=== PATIENT | female | born 1940 | race Caucasian/White ===

== ENCOUNTER 2019-10-22 01:23 | Emergency (ER) | payer MEDICARE, OTHER ==
[~2019-10-22 01:23] MED LIST: ASPI81TA26 PO; ATIV1TAB7 PO; COUM2.5T17 PO; COZA100T2 PO; DILT120T PO; EFFE75CA2 PO; FERR225T PO; HYDR12.55 PO; INSULANT SC; JANU100T PO; LEVO25TA5 PO; LOMO2.5T PO; MECL1CHW PO; METF500T13 PO; POTA540T PO; RISP1TAB3 PO; TYLE167L PO; ULTR50TA8 PO; VYTO10TA22 PO; [UNRECOGNIZED DRUG - CODE] PO
[2019-10-22 02:31] LABS: HEMATOCRIT 36.6 % (36.0-47.0); HEMOGLOBIN 11.6 g/dl (12.0-15.5); MEAN CORPUSCULAR HEMOGLOBIN 30.1 pg (27.0-33.0); MEAN CORPUSCULAR HGB CONC 31.7 g/dl (32.0-36.5); MEAN CORPUSCULAR VOLUME 94.8 fl (80.0-96.0); PLATELET COUNT, AUTOMATED 158 10^3/uL (150-450); RED BLOOD COUNT 3.86 10^6/uL (4.00-5.40); WHITE BLOOD COUNT 9.4 10^3/uL (4.0-10.0)
[2019-10-22 03:20] LABS: ACETAMINOPHEN LEVEL < 2.0 UG/ML (10.0-30.0); ALT/SGPT 17 U/L (12-78); BILIRUBIN,DIRECT 0.1 MG/DL (0.0-0.2); BILIRUBIN,TOTAL 0.2 MG/DL (0.2-1.0); CALCIUM LEVEL 8.4 MG/DL (8.8-10.2); CARBON DIOXIDE LEVEL 37 MEQ/L (21-32); CHLORIDE LEVEL 100 MEQ/L (98-107); ETHYL ALCOHOL (ETHANOL) < 0.003 % (0.000-0.010); GLOMERULAR FILTRATION RATE 46.1 (>39); GLUCOSE, FASTING 133 MG/DL (70-100); SALICYLATE LEVEL < 1.7 MG/DL (5.0-30.0); SODIUM LEVEL 143 MEQ/L (136-145); TOTAL PROTEIN 6.4 GM/DL (6.4-8.2)
[2019-10-22 03:29] LABS: BLOOD UREA NITROGEN 24 MG/DL (7-18)
[2019-10-22 04:29] LABS: AMPHETAMINES LEVEL URINE NEGATIVE (NEGATIVE); BARBITURATES URINE NEGATIVE (NEGATIVE); BENZODIAZEPINES URINE NEGATIVE (NEGATIVE); CANNABINOIDS URINE NEGATIVE (NEGATIVE); COCAINE METABOLITE URINE NEGATIVE (NEGATIVE); METHADONE URINE NEGATIVE (NEGATIVE); OPIATES URINE NEGATIVE (NEGATIVE); PHENCYCLIDINE URINE NEGATIVE (NEGATIVE)
[2019-10-22] MEDS ORDERED: HUMA100I5 SC (04:50)
[2019-10-22] MEDS ORDERED: LANTINJ4 SC ×2 (04:50)
[2019-10-22] MEDS ORDERED: NITR50CA34 PO (04:50)
[2019-10-22] MEDS ORDERED: NAME28CA PO (04:50)
[2019-10-22] MEDS ORDERED: ASPI81TA85 PO (04:50)
[2019-10-22] MEDS ORDERED: VALS1TAB66 PO (04:50)
[2019-10-22] MEDS ORDERED: METO25TA4 PO (04:50)
[2019-10-22] MEDS ORDERED: SPIR-10 PO (04:50)
[2019-10-22] MEDS ORDERED: RISP0.5T3 PO (04:50)
[2019-10-22] MEDS ORDERED: SIMV20TA22 PO (04:50)
[2019-10-22] MEDS ORDERED: LEVO88TA3 PO (04:50)
[2019-10-22] MEDS ORDERED: ACET1TAB55 PO (04:50)
[2019-10-22] MEDS ORDERED: ACET1TAB37 PO (04:50)
[2019-10-22] MEDS ORDERED: OXYB-54 PO (04:50)
[2019-10-22] MEDS ORDERED: FURO40TA2 PO (04:50)
[2019-10-22] MEDS ORDERED: MELA3TAB49 PO (04:50)
[2019-10-22] MEDS ORDERED: LEVOTHYROXINE 88MCG TABLET (0.088 MG) PO SCH (06:00)
[2019-10-22] MEDS ORDERED: MAGN400O53 PO (08:35)
[2019-10-22] MEDS ORDERED: MELA3TAB62 PO (08:35)
[2019-10-22] MEDS ORDERED: DULC10SU2 PR (08:35)
[2019-10-22] MEDS ORDERED: ENEMENE6 PR (08:35)
[2019-10-22] MEDS ORDERED: DRIS50003 PO (08:35)
[2019-10-22] MEDS ORDERED: CVS40GEL PO (08:35)
[2019-10-22] MEDS ORDERED: GLUC1KIT IM (08:35)
[2019-10-22] MEDS ORDERED: SPIRONOLACTONE 25 MG TAB PO SCH (09:00)
[2019-10-22] MEDS ORDERED: oxyBUTYnin *DITROPAN XL* 5 MG TABCR PO SCH (09:00)
[2019-10-22] MEDS ORDERED: VALSARTAN 80 MG TAB (DIOVAN) PO ONE (09:15)
[2019-10-22] MEDS ORDERED: FUROSEMIDE 40 MG TAB PO ONE (09:15)
[2019-10-22] MEDS ORDERED: METOPROLOL TART 25 MG TABLET PO ONE (09:15)
[2019-10-22] MEDS ORDERED: ASPIRIN 81 MG CHEW TABLET PO ONE (09:15)
[2019-10-22] MEDS ORDERED: VENLAFAXINE **XR** 75MG CAPSULE PO ONE (09:15)
[2019-10-22] MEDS ORDERED: metFORMIN (GLUCOPHAGE) 500 MG TAB PO ONE (09:15)
[2019-10-22] MEDS ORDERED: LEVEMIR (INSULIN DETEMIR) 1 UNITS/0.01ML SC ONE (09:15)
[2019-10-22 09:44] VITALS: BP 169/75
[2019-10-22 13:38] VITALS: BP 192/86
--- NOTE | 2019-10-22 21:29 | ECGEPIP ---
[facility] - ED Test Date: 2019-10-22 Pat Name: MINDA CLAIRE Department: Room: - Gender: Female [employer]: OLENA : 1940 Requested By: Gerber Chávez Order Number: [id number] Reading MD: Gerber Martinez Measurements Intervals [place] Rate: 58 P: 14 [place]: 215 QRS: -33 QRSD: 100 T: 0 QT: 456 QTc: 450 Interpretive Statements SINUS BRADYCARDIA WITH FIRST DEGREE AV BLOCK LEFT AXIS DEVIATION PATTERN CONSISTENT WITH PULMONARY DISEASE NSTTW ABNORMALITIES NO PRIORS FOR COMPARISON Electronically Signed on 10-22-2019 21:29:39 EDT by Gerber Martinez
== END 2019-10-22 14:38 | disposition home or self-care (01) ==
LOC: M ED 01:23
DX: F03.90 Unspecified dementia, unspecified severity, without behavioral disturbance, psychotic disturbance, mood disturbance, and anxiety (principal); F32.9 Major depressive disorder, single episode, unspecified; R00.1 Bradycardia, unspecified; Z79.82 Long term (current) use of aspirin; Z79.4 Long term (current) use of insulin; Z79.899 Other long term (current) drug therapy; Z88.0 Allergy status to penicillin; Z88.8 Allergy status to other drugs, medicaments and biological substances
CPT/HCPCS: 36415; 51701; 80048; 80076; 80307; 81001; 84443; 85027; 87088; 87186; 87486; 87581; 87633; 87798; 93005; 99285; G0480